=== PATIENT | female | born 1960 | race Caucasian/White ===

== ENCOUNTER → 2020-09-06 10:53 | Outpatient (CLI) | payer MEDICARE, BC, SELFPAY ==
[2020-09-06 11:41] LABS: Basophils % 0.5 % (0.1-2.0); Eosinophils # 0.1 K/mm3 (0.0-0.4); Eosinophils % 1.3 % (0.1-12.0); Hematocrit 40.1 % (37.0-47.0); Hemoglobin 12.8 g/dL (12.2-16.2); Lymphocytes # 2.2 K/mm3 (0.7-4.5); Mean Corpuscular Hemoglobin 31.9 pg (27.0-31.2); Mean Corpuscular Volume 99.7 fl (81-99); Mean Platelet Volume 7.7 fl (7.4-10.4); Monocytes # 0.4 K/mm3 (0.1-1.0); Monocytes % 7.7 % (1.7-9.3); Neutrophils # 2.5 K/mm3 (1.8-7.8); Neutrophils % 48.5 % (37.0-80.0); Platelet Count 294 K/mm3 (142-424); Red Blood Count 4.02 M/mm3 (4.20-5.40); Red Cell Distribution Width 13.6 % (11.5-17.5); White Blood Count 5.2 K/mm3 (4.8-10.8)
[2020-09-06 11:59] LABS: Chloride 108 mmol/L (98-107); Potassium 4.5 mmoL/L (3.5-5.1); Sodium 140 mmol/L (136-145)
[2020-09-06 12:01] LABS: Alanine Aminotransferase 17 U/L (12-78); Aspartate Amino Transferase 24 U/L (14-36); Blood Urea Nitrogen 23 mg/dl (7-17); Estimated Glomerular Filt Rate 73 ml/min (>60); GFR (African American) 88 ML/MIN (>60)
[2020-09-06 12:02] LABS: Albumin Level 4.1 g/dl (3.5-5.0); Albumin/Globulin Ratio 1.2 (1.1-1.8); Alkaline Phosphatase 68 U/L (38-126); Anion Gap 11.5 mEq/L (5-15); Bilirubin,Total 0.5 mg/dl (0.2-1.3); Carbon Dioxide 25 mmol/L (22.0-30.0); Globulin 3.5 g/dL (1.3-3.2); Glucose 104 mg/dl (74-100); Total Protein,Serum 7.6 g/dl (6.3-8.2)
[2020-09-06 12:13] LABS: Valproic Acid, (Depakene) 34.1 ug/ml (50-100)
[2020-09-06 12:35] LABS: Thyroid Stimulating Hormone 1.39 uIU/mL (0.465-4.68)
[2020-09-06 12:52] LABS: Vitamin B12 660 pg/mL (239-931)
[2020-09-06 14:35] LABS: Folate > 20.00 ng/mL
[2020-09-07 13:34] LABS: Ceruloplasmin 31.2 mg/dL (19.0-39.0)
== END ==
PROVIDERS: Visit Provider Specialist
DX: R25.1 Tremor, unspecified (principal); Z79.899 Other long term (current) drug therapy
CPT/HCPCS: 36415; 80053; 80164; 82390; 82607; 82746; 84443; 85025

== ENCOUNTER → 2020-09-10 12:51 | Outpatient (CLI) | payer MEDICARE, BC, SELFPAY ==
--- NOTE | 2020-09-10 12:56 | XR_ITS ---
PROCEDURE: XR THORACIC SPINE 2V CLINICAL INDICATION: back pain COMPARISON: No exams were available for comparison FINDINGS: Mild thoracic scoliosis convex left. There is multilevel thoracic spondylosis with degenerative disc disease. No fracture or dislocation. No lytic or blastic change. There is mild wedge contour involving T2 however, this may be somewhat artifactual in nature only present on 1 of 2 images at the L2-L3 level on the left there is an oval density which could represent a pill IMPRESSION: Degenerative changes Dictated by: Gopi Chandler MD 09/10/2020 15:29 Gopi Chandler MD in [facility] 09/10/2020 15:29
--- NOTE | 2020-09-10 12:56 | XR_ITS ---
PROCEDURE: XR DEXA AXIAL SKELETON CLINICAL HISTORY: screening COMPARISON: No exams were available for comparison FINDINGS: The right hip BMD is 0.734 with a T-score of -1.0. The left hip BMD is 0.738 with a T-score of -1.0. The lumbar spine BMD is 0.97 with a T-score of -0.7. IMPRESSION: This patient is considered normal according to the [employer] Organization criteria. Fracture risk is low. Based on these results a follow-up exam is recommended in 2 year. Dictated by: Gopi Chandler MD 09/11/2020 10:47 Gopi Chandler MD in [facility] 09/11/2020 10:47
--- NOTE | 2020-09-10 12:56 | XR_ITS ---
PROCEDURE: XR LUMBAR SPINE 2-3V CLINICAL INDICATION: back pain COMPARISON: No exams were available for comparison FINDINGS: Normal alignment. There is an old wedge compression fracture at T12 with anterior osteophytes at T11-T12. There is mild wedge compression changes of L3 which may be old as there are endplate osteophytes at this level as well. Degenerative disc disease is present at L4-5 and L5-S1. No lytic or blastic change. Facet arthritic changes L5-S1. IMPRESSION: Multilevel lower thoracic and lumbar spondylosis as described above with mild chronic wedge compression changes of T12 and L3. Dictated by: Gopi Chandler MD 09/10/2020 15:26 Gopi Chandler MD in [place] 09/10/2020 15:26
== END ==
PROVIDERS: PCP Family Medicine; Visit Provider Family Medicine
DX: Z13.820 Encounter for screening for osteoporosis (principal); Z78.0 Asymptomatic menopausal state; M54.6 Pain in thoracic spine; M54.5 Low back pain
CPT/HCPCS: 72070; 72100; 77080

== ENCOUNTER 2025-06-25 12:25 | Outpatient (CLI) | payer MEDICARE, SELFPAY ==
[2025-06-25 15:21] LABS: Albumin Level 4.3 g/dl (3.5-5.0); Chloride 101 mmol/L (98-107); Potassium 4.4 mmoL/L (3.5-5.1); Sodium 140 mmol/L (136-145)
[2025-06-25 15:24] LABS: Alanine Aminotransferase 22 U/L (12-78); Albumin/Globulin Ratio 1.3 (1.1-1.8); Alkaline Phosphatase 69 U/L (38-126); Anion Gap 18.4 mEq/L (5-15); Aspartate Amino Transferase 29 U/L (14-36); Bilirubin,Total 0.6 mg/dl (0.2-1.3); Blood Urea Nitrogen 12 mg/dl (7-17); Calcium 9.5 mg/dl (8.4-10.2); Carbon Dioxide 25 mmol/L (22.0-30.0); Cholesterol 178 mg/dl (140-200); Creatinine,Serum 0.70 mg/dl (0.52-1.04); Estimated Glomerular Filt Rate 84 ml/min (>60); GFR (African American) 101 ML/MIN (>60); Globulin 3.2 g/dL (1.3-3.2); Glucose 93 mg/dl (74-100); Total Protein,Serum 7.5 g/dl (6.3-8.2); Triglycerides 247 mg/dl (30-150)
[2025-06-25 15:25] LABS: HDL Cholesterol 41 mg/dl (40-60)
[2025-06-25 15:53] LABS: Thyroid Stimulating Hormone 0.81 uIU/mL (0.465-4.68)
== END 2025-06-25 23:59 | disposition home or self-care (01) ==
LOC: LAB.DROPOF 06-26 14:12
PROVIDERS: PCP Family Medicine; Visit Provider Family Medicine
DX: F20.9 Schizophrenia, unspecified (principal)
CPT/HCPCS: 80053; 80061; 84443